=== PATIENT | male | born 2005 | race Caucasian/White ===

== ENCOUNTER 2025-03-08 14:33 | Emergency (ER) | payer OTHER ==
[~2025-03-08] VITALS: Ht 177.8 cm; Wt 82.7 kg
[2025-03-08 16:26] VITALS: BP 144/73; TEMP 98.4; O2SAT 97
== END 2025-03-08 16:29 | disposition home or self-care (01) ==
LOC: M ED 14:33
DX: S80.912A Unspecified superficial injury of left knee, initial encounter (principal); Y92.9 Unspecified place or not applicable; Y93.39 Activity, other involving climbing, rappelling and jumping off; Y99.0 Civilian activity done for income or pay